=== PATIENT | male | born 1960 | race African-American/Black ===

== ENCOUNTER 2019-11-09 14:31 | Emergency (ER) | payer MEDICAID, OTHER ==
[~2019-11-09] VITALS: Ht 175.3 cm; Wt 86.0 kg
[2019-11-09 16:49] LABS: BASOPHILS % 0.4 % (0.0-2.0); EOSINOPHILS % 2.5 % (0.0-5.0); HEMATOCRIT. 45.7 % (42.0-52.0); HEMOGLOBIN. 15.7 g/dL (14.0-18.0); LYMPHOCYTES % 34.6 % (20.0-50.0); MEAN CORPUSCULAR HEMOGLOBIN 30.7 pg (28.0-32.0); MEAN CORPUSCULAR VOLUME 89.6 fL (80.0-94.0); MONOCYTES % 11.2 % (2.0-8.0); NEUTROPHILS % 51.3 % (40.0-76.0); PLATELET 332 x1000/uL (130-400); RED CELL DISTRIBUTION WIDTH 15.2 % (11.6-14.6)
[2019-11-09 16:54] LABS: CHLORIDE 106 mEq/L (98-107)
[2019-11-09 16:58] LABS: PROTHROMBIN TIME 10.7 sec (9.6-11.0)
[2019-11-09 21:20] VITALS: BP 152/82
== END 2019-11-09 21:36 | disposition home or self-care (01) ==
LOC: ER 14:39
DX: U07.1 COVID-19 (principal); R06.00 Dyspnea, unspecified; I10 Essential (primary) hypertension
CPT/HCPCS: 36415; 71045; 80053; 83880; 84484; 85025; 85610; 93005; 99285; C9803; U0003